=== PATIENT | female | born 1965 | race Caucasian/White ===

== ENCOUNTER 2021-07-26 18:14 | Emergency (ER) | payer OTHER ==
[~2021-07-26] VITALS: Ht 160 cm; Wt 68.0 kg
[2021-07-26 18:15] VITALS: BP 102/66
[2021-07-26 18:46] LABS: URINE BILIRUBIN NEGATIVE (Negative); URINE BLOOD NEGATIVE (Negative); URINE CLARITY CLEAR; URINE COLOR YELLOW; URINE GLUCOSE-RANDOM* NEGATIVE (Negative); URINE KETONES NEGATIVE (Negative); URINE PROTEIN (DIPSTICK) NEGATIVE (Negative); URINE SPECIFIC GRAVITY 1.015 (1.005-1.035); URINE UROBILINOGEN 0.2 E.U./dl (0.2-1.0)
[2021-07-26 18:47] LABS: URINE LEUKOCYTES-REFLEX 1+ (Negative); URINE NITRITE-REFLEX POSITIVE (Negative)
[2021-07-26 18:56] LABS: ABSOLUTE NEUTROPHILS 4.2 thou/uL (1.4-8.2); BASOPHILS 0.8 % (0.0-2.0); EOSINOPHILS 0.9 % (0.0-3.0); HEMATOCRIT 39.2 % (37.0-47.0); HEMOGLOBIN 13.4 gm/dL (12.0-15.0); LYMPHOCYTES 24.2 % (24.0-44.0); MCH 34.4 pg (26.0-34.0); MCHC 34.1 g/dL (28.0-37.0); MCV 100.8 fL (80.0-100.0); MONOCYTES 8.5 % (1.0-8.0); PLATELET COUNT 274 thou/uL (150-400); POLYS 65.6 % (36.0-66.0); RBC 3.89 mil/uL (4.20-5.00); RDW 14.6 % (10.5-14.5); WBC 6.3 thou/uL (4.0-11.0)
[2021-07-26 19:07] LABS: CALCIUM 9.3 mg/dL (8.5-10.1); CREATININE 0.7 mg/dL (0.6-1.0); POTASSIUM 3.7 mmol/L (3.5-5.1)
[2021-07-26 19:09] LABS: CASTS None Seen /LPF (None Seen); SQUAMOUS 0-3 Few /LPF (0-3); URINE RBC None Seen /HPF (NONE SEEN); URINE WBC-REFLEX 6-15 Few /HPF (0-5)
[2021-07-26 19:10] LABS: CRYSTALS None Seen /LPF (None Seen)
[2021-07-26 19:13] LABS: ALBUMIN 3.8 g/dL (3.4-5.0); TOTAL BILIRUBIN 0.2 mg/dL (0.2-1.0); TOTAL PROTEIN 6.9 g/dL (6.4-8.2)
[2021-07-26] MEDS ORDERED: BACTRIM DS TAB1 EACH PO (20:17)
[2021-07-26 21:01] LABS: AMP/METHAMP Negative (Negative); BARBITURATES Negative (Negative); BENZODIAZEPINES Negative (Negative); COCAINE Negative (Negative); METHADONE Negative (Negative); OPIATES Negative (Negative); PCP Negative (Negative)
--- NOTE | 2021-07-27 11:57 | EKG ---
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 : 1965 Requested By: Nan Cardona Order Number: [id number] MD: Bennett Grant Measurements Intervals [place] Rate: 95 P: 54 OR: 168 QRS: 24 QRSD: 92 T: 21 QT: 363 QTc: 457 Interpretive Statements Sinus rhythm Probable left atrial enlargement Abnormal inferior Q waves No previous ECG available for comparison Electronically Signed On 07-27-2021 11:56:54 [employer] by Bennett Grant [email or web address] <ELECTRONICALLY SIGNED> By: Bennett Grant MD, [facility] 07/27/21 1156 06 06 Bennett Grant MD, FACC /EPI
== END 2021-07-26 22:34 | disposition home or self-care (01) ==
LOC: ER 18:14
PROVIDERS: Emergency Medicine; Nurse Practitioner
DX: N39.0 Urinary tract infection, site not specified (principal); Z20.822 Contact with and (suspected) exposure to COVID-19